=== PATIENT | female | born 1955 | race Caucasian/White ===

== ENCOUNTER 2022-05-19 14:16 | Outpatient (CLI) | payer MEDICARE, OTHER | END 2022-05-19 14:17 | disposition home or self-care (01) | LOC: CSHMAMMO 14:16 | PROVIDERS: ATTEND Family Medicine Addiction Medicine | DX: Z12.31 Encounter for screening mammogram for malignant neoplasm of breast (principal) | CPT/HCPCS: 77063; 77067 ==